=== PATIENT | female | born 1945 | race Caucasian/White ===

== ENCOUNTER → 2018-05-09 | Day surgery (SDC) | payer MEDICARE, OTHER ==
[~2018-05-09] MED LIST: ACETAMINOPHEN325 M1 PO; ADULT LOW DOSE81 MG PO; ALPRAZOLAM 0.0.25 M1 PO; AVELOX 400 MG400 MG PO; COMBIVENT INH; DUONEB 2.5-0.5 M3 ML INH; FLUZONE 2045 MCG/011; LIPITOR20 MG PO; LISINOPRIL5 MG PO; OMEPRAZOLE20 M2 PO; PNEUMOVAX25 MCG/0.5; PREDNISONE 10 M10 M1 PO; PREDNISONE 10 M10 MG PO; PROVENTIL INH; SYMBICORT160 MCG/4. INH; TRAMADOL 50 MG50 MG PO; ZANTAC 150MG T150 M1 PO; ZPAK PO; ZYRTEC10 M5 PO
--- NOTE | ~2018-05-09 | PROC ---
[facility] [address] [place] [address] PROCEDURE REPORT Name: MARIA DEL CARMEN LONG [facility]#: [id number] Admission: 05/09/18 Attend Phys: Sandy Vital MD Discharge: Date of : 49 Report #: [id number] THIS REPORT FOR: //name// Please see Perceptive 7 content for GI report. By: 1444Medical Records Staff [facility] /DAINA
[2018-05-09 10:15] LABS: HEMATOCRIT 44.1 % (37.0-47.0); HEMOGLOBIN 14.5 gm/dL (12.0-15.0); MCH 26.8 pg (26.0-34.0); MPV 8.6 fl. (7.2-11.1); RBC 5.44 mil/uL (4.20-5.00); RDW-CV 15.5 % (10.5-14.5); WBC 6.1 thou/uL (4.0-11.0)
[2018-05-09 10:21] LABS: CALCIUM 9.4 mg/dL (8.5-10.1); CREATININE 0.8 mg/dL (0.6-1.3); POTASSIUM 3.7 mmol/L (3.5-5.1)
--- NOTE | 2018-05-09 11:48 | EKG ---
[place] [address] ELECTROCARDIOGRAM REPORT Name: BOBBI LONGICE Luz Room: [facility]#: [id number] Admission: 05/09/18 Attend Phys: Sandy Vital MD Discharge: Date of : 49 Report #: [id number] THIS REPORT FOR: //name// [facility] Test Date: 2018-05-09 Test Time: 10:13:42 Pat Name: MARIA DEL CARMEN LONG Department: Room: Gender: F [employer] Worker: : 1945 Requested By: Hu Angela Order Number: [id number] Juanjose MD: Cisco Fleming Measurements Intervals Wellman Rate: 83 P: 85 DE: 139 QRS: 54 QRSD: 89 T: 65 QT: 382 QTc: 449 Interpretive Statements Sinus rhythm nonspecific st changes Right atrial enlargement Compared to ECG 05/24/2014 09:52:04 no change Electronically Signed On 05-09-2018 11:47:59 [employer]ATER [employer] INSPECTOR by Cisco Fleming [email or web address] <ELECTRONICALLY SIGNED> By: Cisco Fleming MD, [facility] 05/09/18 1147 [id number] Cisco Fleming MD, FACC /EPI
--- NOTE | 2018-05-10 16:08 | PATH ---
[address] [address] PATHOLOGY RPT PROCEDURE Name: MARIA DEL CARMEN LONG Room: [facility]#: [id number] Admission: 05/09/18 Date of : 49 Discharge: Report #: [id number] Path Case #: [id number] [facility] Accession Number: [id number] . 01 Material submitted: . PART A: SIGMOID COLON POLYP PART B: ASCENDING COLON POLYP . 01 Clinical history: . Constipation . 02 Diagnosis: A. Sigmoid colon polyp: - Hyperplastic polyp. . B. Ascending colon polyp: - Tubular adenoma, negative for high-grade dysplasia. (IGNACIO:pit 05/10/2018) QTP/05/10/2018 . 02 Electronically signed: . Angelito Yoder MD, Pathologist NPI- [id number] . 01 Gross description: . A. Received in formalin labeled "Long, Maria Del Carmen, sigmoid colon polyp," is a single segment of gleason soft tissue measuring 0.5 cm in maximum dimension. The specimen is entirely submitted in cassette A1. . B. Received in formalin labeled "Maria Del Carmen Long, ascending colon polyp," is a single segment of gleason soft tissue measuring 0.3 cm in maximum dimension. The specimen is entirely submitted in cassette B1. (TSD; 05/09/2018) TOB/TOB . 02 Pathologist provided ICD-10: K63.5, D12.2 . 02 CPT . 798683, 641070 Specimen Comment: A courtesy copy of this report has been sent to Specimen Comment: [phone], . Specimen Comment: Report sent to / DR DAVIS Specimen Comment: A duplicate report has been generated due to demographic updates. Performed at: [address] [facility] [id number] [place] [address] PATHOLOGY RPT PROCEDURE Name: MARIA DEL CARMEN LONG Room: [facility]#: [id number] Admission: 05/09/18 Date of : 49 Discharge: Report #: [id number] Path Case #: [id number] MD Baldomero Terry MD Phone: [phone] Performed at: [facility] [address] [place], [place] [id number] MD Angelito Yoder MD Phone: [phone]
== END | disposition home or self-care (01) ==
LOC: M.SUR 09:43 → EDSTATUS 09:44 → M.SUR 09:44
PROVIDERS: Student in an Organized Health Care Education/Training Program
DX: D12.2 Benign neoplasm of ascending colon (principal); K63.5 Polyp of colon; K57.30 Diverticulosis of large intestine without perforation or abscess without bleeding; K64.8 Other hemorrhoids; J44.9 Chronic obstructive pulmonary disease, unspecified; K21.9 Gastro-esophageal reflux disease without esophagitis; Z98.890 Other specified postprocedural states; Z79.899 Other long term (current) drug therapy

== ENCOUNTER → 2019-04-04 | Outpatient (CLI) | payer MEDICARE, OTHER | LOC: M.RAD 15:24 | DX: Z12.31 Encounter for screening mammogram for malignant neoplasm of breast (principal); M81.0 Age-related osteoporosis without current pathological fracture; Z78.0 Asymptomatic menopausal state ==